=== PATIENT | male | born 1970 | race Caucasian/White ===

== ENCOUNTER 2016-11-24 09:48 | Inpatient (IN) | payer OTHER ==
[~2016-11-24] VITALS: Ht 165.1 cm; Wt 54.0 kg
--- NOTE | 2016-11-29 23:15 | NUR ---
INTAKE NOTE: PRE-ADMISSION ASSESSMENT: PATIENT IS A 46 YEAR OLD MALE, SEEN IN INTAKE OFFICE, AAOx4, NO SOB AND WITH NO ANXIETY NOTED AT THIS TIME. DISCUSSED WITH PATIENT ADMISSION POLICIESNOF THE UNIT. PATIENT IS COHERENT AND ABLE TO RESPOND TO QUESTIONS APPROPRIATELY. PATIENT IS AMBULATORY WITH STEADY GAIT. VITAL SIGNS TAKEN: T: 97.5; BP: 115/68; HR: 74; RR: 20; O2 SAT: 98%, PAIN LEVEL:"0/10". PATIENT REPORTS THAT HE IS USING THE FOLLOWING SUBSTANCE: 1. ALCOHOL ORAL - "SINCE 1984": "6 PACKS BEER(12 OZ EACH BOTTLE), 1 PINT VODKA, OR 1 PINT LIQUER SINCE 06/2011 LAST USE ON 11/28/16". 2. SUBOXONE PO: " 4 MG PO EVERY DAY SINCE 2007. LAST USE 8 MG ON 11/29/16 IN THE MORNING" . 3.HEROIN SNORTING:"1 GRAM EVERY DAY SINCE 1995. LAST USE 1/4 GRAM ON 11/28/16". 4. COCAINE (NARES):"10 BAGS - 1 GRAM EVERY DAY SINCE 1989. LAST USE 1/2 GRAM ON 11/28/16". 5. PCP SMOKING:" 2-3 CIGARETTES EVERY DAY SINCE 1984. LAST USE 2-3 CIGARRETTES ON 11/19/2016". 6. MARIJUANA SMOKING: "EVERY DAY SINCE 1984. LAST USE ON 11/28/16". 7. TOBACCO SMOKING: " 20 CIGARETTES EVERY DAY SINCE 1984. LAST USE ON 11/29/16 ". PATIENT VERBALIZED INSTRUCTIONS AND TEACHINGS REGARDING UNIT PROTOCOLS SUCH TAKING VITAL SIGNS AND CIWA/COWS ASSESSMENTS Q4H. PATIENT VERBALIZED UNDERSTANDING AND AGREEMENT. WILL COMPLETE ADMISSION ASSESSMENT WHEN PATIENT IS BROUGHT TO UNIT.
[2016-11-29 23:28] VITALS: BP 115/68
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
[2016-11-29] MEDS ORDERED: IBUPROFEN 600 MG TABLET PO PRN (23:45)
[2016-11-29] MEDS ORDERED: BUPRENORPHINE HCL 2 MG TAB.SUBL SL PRN (23:45)
[2016-11-29] MEDS ORDERED: HYDROXYZINE PAMOATE 25 MG CAPSULE PO PRN (23:45)
[2016-11-29] MEDS ORDERED: LOPERAMIDE HCL 2 MG CAPSULE PO PRN ×2 (23:45)
[2016-11-29] MEDS ORDERED: CLONIDINE HCL 0.1 MG TABLET PO PRN (23:45)
[2016-11-29] MEDS ORDERED: MIRALAX 17 GM POWD.PACK PO PRN (23:45)
[2016-11-29] MEDS ORDERED: DICYCLOMINE HCL 20 MG TABLET PO PRN (23:45)
[2016-11-29] MEDS ORDERED: ONDANSETRON 4 MG/2 ML VIAL IM PRN (23:45)
[2016-11-29] MEDS ORDERED: ONDANSETRON ODT 4 MG TAB.RAPDIS SL PRN (23:45)
[2016-11-29] MEDS ORDERED: MAG HYDROX/AL HYDROX/SIMETH 30 ML LIQUID UDC PO PRN (23:45)
[2016-11-29] MEDS ORDERED: LORAZEPAM 1 MG TABLET PO PRN (23:45)
[2016-11-29 23:49] LABS: *AMPHETAMINE, URINE NEGATIVE (NEGATIVE); *BARBITURATE, URINE NEGATIVE (NEGATIVE); *CANNABINOID, URINE POSITIVE (NEGATIVE); *COCCAINE, URINE POSITIVE (NEGATIVE); *OPIATE, URINE POSITIVE (NEGATIVE); *PHENCYCLIDINE SCREEN,URINE NEGATIVE (NEGATIVE)
[2016-11-30] VITALS: BP 109/69
[2016-11-30 01:35] LABS: BASOPHILS # (AUTO) 0.1 K/uL (0.0-8.0); BASOPHILS % (AUTO) 0.2 % (0.0-2.0); EOSINOPHILS # (AUTO) 0.3 K/uL (0.0-0.7); EOSINOPHILS % (AUTO) 0.8 % (0.0-7.0); HEMOGLOBIN 11.4 G/DL (14.0-18.0); LYMPHOCYTES % (AUTO) 80.4 % (20.5-51.5); MEAN CORPUSCULAR HEMOGLOBIN 30.1 UUG (27.0-31.0); MEAN CORPUSCULAR HGB CONC 33 g/dL (32.0-37.0); MEAN CORPUSCULAR VOLUME 92.6 FL (82.0-92.0); MONOCYTES # (AUTO) 3.2 K/UL (0.1-1.30); MONOCYTES % (AUTO) 8.4 % (0.0-11.0); NEUTROPHILS # (AUTO) 3.9 K/UL (1.8-8.9); NEUTROPHILS % (AUTO) 10.2 % (38.5-71.5); PLATELET COUNT (AUTO) 287 K/UL (150-450); RED BLOOD CELL COUNT(AUTO) 3.78 MIL/UL (4.7-6.1)
[2016-11-30 01:38] LABS: ALANINE AMINOTRANSFERASE 15 U/L (16-63); ALKALINE PHOSPHATASE 79 U/L (50-136); ASPARTATE AMINOTRANSFERASE 16 U/L (15-37); BILIRUBIN,TOTAL 0.1 mg/dL (0.2-1.0); CARBON DIOXIDE 32 mmol/L (21-32); CHLORIDE 103 mmol/L (98-107); GLUCOSE 97 mg/dL (74-106); POTASSIUM 3.4 mmol/L (3.5-5.1); TOTAL PROTEIN, SERUM 6.1 g/dL (6.4-8.2); UREA NITROGEN, BLOOD 16 mg/dL (7-18)
[2016-11-30 01:52] LABS: ETHANOL < 3 MG/DL (0-0); WHITE BLOOD COUNT (AUTO) 38.5 K/UL (4.0-11.2)
--- NOTE | 2016-11-30 01:52 | NUR ---
Critical WBC: Jose F from lab called to report critical WBC 38.5. Dr Nelson notified at 01:57 with results with NNO at this time. Pt dx with leukemia in 02/2016 and bone marrow transplant in 04/2016.
[2016-11-30 04:00] VITALS: BP 111/61
[2016-11-30 05:29] LABS: BAND % (MANUAL) 2 % (0-10); EOSINOPHILS % (MANUAL) 1 % (0-8); LYMPHOCYTES % (MANUAL) 80 % (20-40); MONOCYTES % (MANUAL) 3 % (2-10); NEUTROPHILS % (MANUAL) 9 % (42-75)
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
--- NOTE | 2016-11-30 07:20 | NUR ---
Start of Shift Domestic Violence Counselor received report on 46 year old male admitted on 11/29/16 for ETOH, Opiate and Cocaine detoxification. Pt is a full code, regular diet with an allergy to Motrin. PMH positive for Leukemia and a resultant bone marrow transplant in 06/07. ( pt WBC elevated, MD made aware, per note on NOC shift.) PMH also of anxiety, depression, hernia repair, chronic lower back pain and multiple fractures , as result of boxing career. Pt reports no history of seizures. Domestic Violence Counselor encounters pt resting in bed with eyes closed and even and unlabored respirations. Rise and fall of chest, noted. Bed in low position, wheels locked, with side rails up x2. Call light within in reach. All safety measures in place according to hospital policy.
[2016-11-30 08:01] VITALS: BP 125/83
[2016-11-30] MEDS ORDERED: TUBERCULIN,PURIF.PROT.DERIV. 5 TU/0.1 ML TEST ID ONE (09:00)
[2016-11-30] MEDS: MULTIVITAMINS,THERAPEUTIC TABLET PO SCH (09:38)
[2016-11-30] MEDS ORDERED: POTASSIUM CHLORIDE 20 MEQ TAB.PRT.SR PO ONE (09:45)
[2016-11-30] MEDS ORDERED: LORAZEPAM 1 MG TABLET PO PRN ×2 (10:00)
[2016-11-30] MEDS ORDERED: LORAZEPAM 2 MG/1 ML VIAL IM PRN (10:00)
[2016-11-30 12:45] VITALS: BP 128/88
[2016-11-30] MEDS: LORAZEPAM 1 MG TABLET PO SCH ×3 (13:20→20:39)
[2016-11-30] MEDS: BUPRENORPHINE HCL 2 MG TAB.SUBL SL SCH ×3 (13:20→20:38)
[2016-11-30 16:50] VITALS: BP 132/81
--- NOTE | 2016-11-30 18:50 | NUR ---
End of Shift Java Core Developer report on 46 year old male admitted on 11/29/16 for ETOH, Opiate and Cocaine detoxification. Pt is a full code, regular diet with an allergy to Motrin. PMH positive for Leukemia and a resultant bone marrow transplant in 06/07. ( pt WBC elevated, MD made aware, MD stating, this is his baseline.) PMH also of anxiety, depression, hernia repair, chronic lower back pain and multiple fractures , as result of boxing career. Pt reports no history of seizures. Pt started on 5 day Ativan and 5 day Subutex tapers., pt tolerating well. Pt has been calm and cooperative, A/O x4 and able to make his needs known. Describes minor withdrawal symptoms and presents pleasant and polite with staff. Bed in low position, wheels locked, with side rails up x2. Call light within in reach. All safety measures in place according to hospital policy. No further comments, questions or concerns voiced by accepting nurse.
--- NOTE | 2016-11-30 18:50 | NUR ---
START OF SHIFT NOTE: PATIENT ENDORSED BY OUTGOING DAY SHIFT NURSE IN STABLE CONDITION. REPORT RECEIVED. PATIENT IS A 46 YEAR OLD MALE ADMITTED TO [facility] ON 11/29/2016 FOR ALCOHOL, OPIOID, COCAINE, AND CANNABINOIDS DEPENDENCE, CONTINUE 5 DAY ATIVAN and 5 DAY SUBUTEX TAPER. PATIENT REPORTS ALLERGY TO IBUPROFEN (MOTRIN). PATIENT IS ON REGULAR DIET, FULL CODE, FALL AND SEIZURES PRECAUTIONS. PATIENT DENIES SEIZURES HISTORY. UPON ENDORSEMENT PATIENT WAS ASSESSED IN HIS ROOM. PATIENT IS ALERT AND ORIENTED X4. SPEECH IS SOFT AND CLEAR. VSWNL. CIWA 7, COWS 7. PATIENT PRESENTED WITH ANXIETY, AGITATION, DEPRESSION, NERVOUSNESS, TREMORS THAT CAN BE FELT, DIAPHORESIS, NASAL STUFFY/MOIST EYES, BODY ACHES, AND RESTLESSNESS. RESPIRATIONS EVEN AND UNLABORED. LUNGS SOUNDS ARE CLEAR THROUGHOUT, PATIENT DENIES SOB/COUGH AND CHEST PAIN. ABDOMEN IS SOFT, NON-TENDER. BOWEL SOUNDS ARE ACTIVE IN ALL X4 QUADRANTS. LAST BM ON 11/30/2016. PATIENT SKIN IS INTACT, WARM AND DRY. DVT PUMPS CONNECTED TO PATIENT ORDERED. ALL NEEDS MET. SAFETY MEASURES IN THE PLACE: CALL LIGHT WITHIN REACH, BED LOCKED, AND IN THE LOWEST POSITION, PADDED RAILS UPX2. WILL CONTINUE TO MONITOR CLOSELY.
[2016-11-30 20:00] VITALS: BP 118/84
[2016-11-30] MEDS: ACETAMINOPHEN 325 MG TABLET PO PRN (20:39)
--- NOTE | 2016-11-30 20:39 | NUR ---
PRN TYLENOL 650 MG 2 TAB PO ADMINISTRATION Patient c/o low back pain "10/28". Patient was assessed. Patient reports chronic low back pain since 04/2016 from time of bone marrow was done in April,. Patient denies SI/HI. PRN Tylenol PO was discussed, and patient's educated for actions, side effects, and adverse reactions of Tylenol. Patient returned knowledge back by verbalized understanding. PRN Tylenol 650 mg 2 tab PO administrated with full glass of water as ordered. Patient tolerated well. All needs met. Safety measures on place. Call light within reach, bed in lowest position and locked, padded rails up bilaterally rails up bilaterally. Will continue to monitor closely.
--- NOTE | 2016-11-30 21:39 | NUR ---
RE-ASSESSMENT Patient is sleeping. Respirations even and unlabored. RR: 15. PRN Trazodone PO was effective. All needs met. Safety measures on place. Call light within reach, bed in lowest position and locked, padded rails up bilaterally rails up bilaterally. Will continue to monitor closely.
[2016-12-01] VITALS: BP 127/91
[2016-12-01 04:00] VITALS: BP 112/79
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
--- NOTE | 2016-12-01 07:00 | NUR ---
Start of Shift Notes: Received patient in his room. Alert and oriented x 4. Able to make his needs known. Respirations even and unlabored. No SOB noted. Skin warm and dry to touch. Abdomen soft and non-distended. BS (+) in all 4 quadrants. No complains of N/V/D or constipation noted. Voids independently. Ambulatory ad mercedes with steady gait. Patient os a 46 year male admitted for opiate and ETOH dependence who was placed on a 5-day Subutex and 5-day Ativan taper as ordered. No adverse reactions noted. Has past medical hx of anxiety, depression, hernia, lewukemia, one marrow transplant and multiple fractures. Allergic to ibuprofen. FULL CODE. Regular diet. On fall and seizure precautions. Educated patient on his current plan of care for the day and his medication regimen. Encouraged oral fluid intake and encouraged group participation to learn new skills to prevent relapse. Will continue to monitor closely.
[2016-12-01 07:02] LABS: BASOPHILS # (AUTO) 0.1 K/uL (0.0-8.0); BASOPHILS % (AUTO) 0.1 % (0.0-2.0); EOSINOPHILS # (AUTO) 0.2 K/uL (0.0-0.7); EOSINOPHILS % (AUTO) 0.4 % (0.0-7.0); HEMOGLOBIN 12.8 G/DL (14.0-18.0); LYMPHOCYTES % (AUTO) 78.4 % (20.5-51.5); MEAN CORPUSCULAR HEMOGLOBIN 30.8 UUG (27.0-31.0); MEAN CORPUSCULAR HGB CONC 33 g/dL (32.0-37.0); MEAN CORPUSCULAR VOLUME 93.7 FL (82.0-92.0); MONOCYTES # (AUTO) 6.2 K/UL (0.1-1.30); MONOCYTES % (AUTO) 11.5 % (0.0-11.0); NEUTROPHILS # (AUTO) 5.2 K/UL (1.8-8.9); NEUTROPHILS % (AUTO) 9.6 % (38.5-71.5); PLATELET COUNT (AUTO) 298 K/UL (150-450); RED BLOOD CELL COUNT(AUTO) 4.14 MIL/UL (4.7-6.1)
[2016-12-01 07:12] LABS: WHITE BLOOD COUNT (AUTO) 53.7 K/UL (4.0-11.2)
[2016-12-01 07:13] LABS: HEMATOCRIT 38.8 % (40-50)
[2016-12-01 07:16] LABS: CREATININE 0.9 mg/dL (0.6-1.3); MAGNESIUM 1.8 mg/dL (1.8-2.4); PHOSPHOROUS 2.3 mg/dL (2.5-4.9); POTASSIUM 4.3 mmol/L (3.5-5.1); URIC ACID 3.7 mg/dL (3.5-7.2)
--- NOTE | 2016-12-01 07:22 | NUR ---
Critical WBC: Critical WBC of 53.7 reported by Herb from lab. made aware with NNO.
[2016-12-01 08:00] VITALS: BP 121/83
[2016-12-01 08:07] LABS: HEPATITIS B SURFACE AG Negative (Negative)
[2016-12-01] MEDS ORDERED: MULTIVITAMINS,THERAPEUTIC TABLET PO SCH (09:00)
[2016-12-01] MEDS: MULTIVITAMINS,THERAPEUTIC TABLET PO SCH (09:08)
[2016-12-01] MEDS: LORAZEPAM 1 MG TABLET PO SCH ×3 (09:08→20:25)
[2016-12-01] MEDS: FOLIC ACID 1 MG TABLET PO SCH (09:09)
[2016-12-01] MEDS: BUPRENORPHINE HCL 2 MG TAB.SUBL SL SCH ×3 (09:09→20:28)
[2016-12-01] MEDS: THIAMINE HCL 100 MG TABLET PO SCH (09:09)
[2016-12-01] MEDS: ENOXAPARIN SODIUM 40 MG/0.4 ML DISP.SYRIN SQ SCH (09:12)
[2016-12-01] MEDS: METHOCARBAMOL 750 MG TABLET PO PRN ×2 (09:19→20:30)
--- NOTE | 2016-12-01 09:19 | NUR ---
Robaxin 750 mg PO given: Patient noted with complain of 5/10 myalgia due to his withdrawal symptoms. Non-pharmacological interventions were provided but ineffective. Medicated patient with Robaxin 750 mg PO as ordered. Will monitor for effectiveness.
[2016-12-01 10:16] LABS: EOSINOPHILS % (MANUAL) 1 % (0-8); LYMPHOCYTES % (MANUAL) 72 % (20-40); NEUTROPHILS % (MANUAL) 10 % (42-75)
[2016-12-01 10:17] LABS: MONOCYTES % (MANUAL) 10 % (2-10)
--- NOTE | 2016-12-01 10:19 | NUR ---
Re-assessment: Per patient, PRN Robaxin was effective in reducing pain. PL 2.
[2016-12-01 10:20] LABS: REACTIVE LYMPHOCYTES 7 % (0-0)
[2016-12-01 12:00] VITALS: BP 126/78
[2016-12-01] MEDS ORDERED: NEUTRA PHOS PACKET PO ONE (15:45)
[2016-12-01 16:00] VITALS: BP 119/83
--- NOTE | 2016-12-01 18:59 | NUR ---
End of Shift Notes: Patient continues to be on 5-day Subutex and 5-day Ativan taper as ordered. No adverse reactions noted. Patient is tolerating both taper well. VS monitored closely. No significant abnormalities noted. Patients withdrawal symptoms were closely monitored. Initial COWS 6/CIWA 5, patient presented with chills, hot flashes, muscle aches and pains, mild anxiety and tremors. Medicated patient with Robaxin 750 mg PO as ordered at 0919 with help after 1 hour. Per patient, Ativan and Subutex has been effective in reducing patients withdrawal symptoms. Last COWS 4/CIWA 3. Patient was encouraged to attend group and activities. Labs reviewed by MD. Patient is afebrile throughout the shift. All needs met and attended. Call light in reach. Will continue to monitor.
--- NOTE | 2016-12-01 19:45 | NUR ---
START OF SHIFT Received report from day shift nurse. Pt is lying in bed resting. He is a 46 yo male admitted to [facility] on 11/29 for ETOH and Opiate dependence. He is A&O x4 and ambulatory. Allergies to ibuprofen, full code status, and on a regular diet. He has a PMH of leukemia, bone [place] transplant, chronic low back pain, multiple fractures, hernia, anxiety, and depression. On admission he admitted to using 6 12oz beers and 1 pint of vodka per day, heroin 1 gram per day, Suboxone 4mg per day, cocaine 1 gram per day, PCP "2-3 cigarettes" per day, and marijuana. Pt started a 5 day Ativan and 5 day Subutex taper on 11/30. He reports hot flashes, anxiety, and low back pain. Pt is noted with moist skin and dilated pupils. Tapers due tonight. Fall and seizure precautions in place. Bed is down with call light in reach.
[2016-12-01 20:00] VITALS: BP 106/79
[2016-12-01] MEDS: GABAPENTIN 300 MG CAPSULE PO SCH (20:26)
[2016-12-01] MEDS: CLONIDINE HCL 0.1 MG TABLET PO SCH (20:26)
--- NOTE | 2016-12-01 20:30 | NUR ---
PRN Robaxin administration Pt c/o low back ache 09/28. PRN Robaxin administered.
[2016-12-01] MEDS ORDERED: MAGNESIUM OXIDE 400 MG TABLET PO ONE (21:00)
--- NOTE | 2016-12-01 21:30 | NUR ---
PRN Robaxin reassessment PRN Robaxin effective. Pt reports low back ache is resolved.
--- NOTE | 2016-12-01 21:55 | NUR ---
Mag-Ox 400mg administered per MD orders.
[2016-12-02] VITALS: BP 106/81
--- NOTE | 2016-12-02 | NUR ---
0000 COWS and CIWA deferred COWS and CIWA ordered Q4HWA. Pt is lying in bed resting with eyes closed. Vital signs obtained. Safety measures in place.
--- NOTE | 2016-12-02 04:00 | NUR ---
0400 Vitals refused/COWS and CIWA deferred Pt refused to be woken for 0400 vitals. He is lying in bed resting with eyes closed. Respirations even and unlabored. COWS and CIWA ordered Q4HWA. Safety measures in place.
--- NOTE | 2016-12-02 07:13 | NUR ---
END OF SHIFT Report provided to day shift nurse. Pt is lying in bed resting. He is a 46 yo [facility]H and Opiate dependence. He is A&O and ambulatory. Allergic to ibuprofen, full code status, and on a regular diet. Pt has a PMH of leukemia, bone [place] transplant, chronic low back pain, multiple fractures, hernia, anxiety, and depression. On admission he admitted to using 6 12oz beers and 1 pint of vodka per day, heroin 1 gram per day, Suboxone 4mg per day, cocaine 1 gram per day, PCP "2-3 cigarettes" per day, and marijuana. Pt started a 5 day Ativan and 5 day Subutex taper on 11/30. Tapers are working well to manage withdrawal symptoms. PRN Robaxin and one time Mag Ox administered. Last COWS 4 and CIWA 3 after medication administration. WBC's elevated. aware. Labs ordered for tomorrow morning. He drank 1150mL and slept for 7 hours. Fall and seizure precautions in place. Bed is down with call light in reach.
--- NOTE | 2016-12-02 07:30 | NUR ---
Start of shift note; Received report from night nurse. Patient is a 46 year male admitted on 11/29/16 for ETOH/Opiate withdrawals. Patient was placed on a 5 day Ativan and 5 day Subutex tapers, no adverse reactions noted. Patient reported history of anxiety, depression, hernia, Leukemia, chronic back pain. Patient reported to be allergic to Motrin, on full code status. Patient is on fall and seizure precautions. Bed in lowest position, call light within reach. Will continue to monitor patient.
[2016-12-02 08:00] VITALS: BP 126/94
[2016-12-02] MEDS: GABAPENTIN 300 MG CAPSULE PO SCH ×2 (08:53→20:55)
[2016-12-02] MEDS: LORAZEPAM 1 MG TABLET PO SCH ×4 (08:53→20:54)
[2016-12-02] MEDS: MULTIVITAMINS,THERAPEUTIC TABLET PO SCH (08:53)
[2016-12-02] MEDS: FOLIC ACID 1 MG TABLET PO SCH (08:53)
[2016-12-02] MEDS: THIAMINE HCL 100 MG TABLET PO SCH (08:53)
[2016-12-02] MEDS: CLONIDINE HCL 0.1 MG TABLET PO SCH ×2 (08:53→20:54)
[2016-12-02] MEDS: ENOXAPARIN SODIUM 40 MG/0.4 ML DISP.SYRIN SQ SCH (08:56)
[2016-12-02] MEDS ORDERED: BUPRENORPHINE HCL 2 MG TAB.SUBL SL SCH (09:00)
--- NOTE | 2016-12-02 11:00 | NUR ---
Therapist prompted client about group times. Client stated he would attend all groups today.
[2016-12-02 12:00] VITALS: BP 117/82
[2016-12-02] MEDS: BUPRENORPHINE HCL 2 MG TAB.SUBL SL SCH ×2 (14:23→20:55)
[2016-12-02 16:00] VITALS: BP 119/78
--- NOTE | 2016-12-02 18:28 | NUR ---
End of shift note; Patient is AOX4. Patient is a 46 year male admitted on 11/29/16 for ETOH/Opiate withdrawals. Patient was placed on a 5 day Ativan and 5 day Subutex tapers, no adverse reactions noted. Patient reported history of anxiety, depression, hernia, Leukemia, chronic back pain. Patient reported to be allergic to Motrin, on full code status. Patient is on fall and seizure precautions. patient remained complaint with treatment plan and medication regime. All safety measures secured. Met all needs.
--- NOTE | 2016-12-02 19:45 | NUR ---
START OF SHIFT Received report from day shift nurse. Pt is lying in bed resting. He is a 46 yo male admitted to [facility] on 11/29 for ETOH and Opiate dependence. He is A&O x4 and ambulatory. Allergic to ibuprofen, full code status, and on a regular diet. He has a PMH of leukemia, bone marrow transplant, chronic low back pain, multiple fractures, hernia, anxiety, and depression. Upon admission he reported using 6 12oz beers and 1 pint of vodka per day, heroin 1 gram per day, Suboxone 4mg per day, cocaine 1 gram per day, PCP "2-3 cigarettes" per day, and marijuana. Pt started a 5 day Ativan and 5 day Subutex taper on 11/30. He reports chills, low back pain, inability to relax, and anxiety. Tapers due tonight. Safety measures in place.
[2016-12-02 20:00] VITALS: BP 122/76
[2016-12-02] MEDS: METHOCARBAMOL 750 MG TABLET PO PRN (20:54)
--- NOTE | 2016-12-02 20:55 | NUR ---
PRN Robaxin administration Pt c/o low back pain 11/28. PRN Robaxin administered.
--- NOTE | 2016-12-02 21:55 | NUR ---
PRN Robaxin reassessment PRN Robaxin effective at reducing pt's pain level to 4/10.
[2016-12-02] MEDS: ACETAMINOPHEN 325 MG TABLET PO PRN (23:45)
[2016-12-02] MEDS: diphenhydrAMINE 50 MG CAPSULE PO PRN (23:45)
--- NOTE | 2016-12-02 23:46 | NUR ---
PRN Tylenol and Benadryl Pt c/o back pain /10 and inability to sleep. PRN Tylenol and Benadryl administered. Warm pack provided for low back.
[2016-12-03] VITALS: BP 113/70
[2016-12-03 06:59] LABS: BASOPHILS % (AUTO) 0.1 % (0.0-2.0); EOSINOPHILS # (AUTO) 0.2 K/uL (0.0-0.7); EOSINOPHILS % (AUTO) 0.6 % (0.0-7.0); HEMATOCRIT 37.7 % (40-50); HEMOGLOBIN 12.4 G/DL (14.0-18.0); LYMPHOCYTES # (AUTO) 32.4 K/UL (0.8-4.8); MEAN CORPUSCULAR HEMOGLOBIN 30.7 UUG (27.0-31.0); MEAN CORPUSCULAR HGB CONC 33 g/dL (32.0-37.0); MONOCYTES # (AUTO) 4.1 K/UL (0.1-1.30); NEUTROPHILS # (AUTO) 4.2 K/UL (1.8-8.9); NEUTROPHILS % (AUTO) 10.3 % (38.5-71.5); PLATELET COUNT (AUTO) 267 K/UL (150-450); RED BLOOD CELL COUNT(AUTO) 4.05 MIL/UL (4.7-6.1)
--- NOTE | 2016-12-03 07:07 | NUR ---
END OF SHIFT Report provided to day shift nurse. Pt is lying in bed resting. He is a 46 yo male admitted to [facility] on 11/29 for ETOH and Opiate dependence. He is A&O x4 and ambulatory. Allergic to ibuprofen, full code status, and on a regular diet. He has a PMH of leukemia, bone marrow transplant, chronic low back pain, multiple fractures, hernia, anxiety, and depression. Upon admission he reported using 6 12oz beers and 1 pint of vodka per day, heroin 1 gram per day, Suboxone 4mg per day, cocaine 1 gram per day, PCP "2-3 cigarettes" per day, and marijuana. Pt started a 5 day Ativan and 5 day Subutex taper on 11/30. PRN Robaxin, Tylenol, and Benadryl administered for back pain. Last COWS 6 and CIWA 3. He drank 480mL and slept for 6 hours. Tapers due tonight. Safety measures in place.
[2016-12-03 07:08] LABS: WHITE BLOOD COUNT (AUTO) 40.9 K/UL (4.0-11.2)
[2016-12-03 07:15] LABS: PHOSPHOROUS 3.6 mg/dL (2.5-4.9); POTASSIUM 4.2 mmol/L (3.5-5.1)
--- NOTE | 2016-12-03 07:23 | NUR ---
Start of shift note; Received report from night nurse. Patient is a 46 year male admitted on 11/29/16 for ETOH/Opiate withdrawals. Patient was placed on a 5 day Ativan and 5 day Subutex tapers, no adverse reactions noted. Patient reported history of anxiety, depression, hernia, Leukemia, chronic back pain. Patient reported to be allergic to Motrin, on full code status. Patient's last COWS score is 6 and last CIWA is 4. Patient is on fall and seizure precautions. Bed in lowest position, call light within reach. Will continue to monitor patient.
[2016-12-03 08:00] VITALS: BP 104/68
[2016-12-03 08:34] LABS: EOSINOPHILS % (MANUAL) 1 % (0-8); LYMPHOCYTES % (MANUAL) 82 % (20-40); MONOCYTES % (MANUAL) 6 % (2-10); NEUTROPHILS % (MANUAL) 11 % (42-75)
[2016-12-03] MEDS: GABAPENTIN 300 MG CAPSULE PO SCH ×3 (08:53→20:51)
[2016-12-03] MEDS: BUPRENORPHINE HCL 2 MG TAB.SUBL SL SCH ×3 (08:53→20:52)
[2016-12-03] MEDS: MULTIVITAMINS,THERAPEUTIC TABLET PO SCH (08:53)
[2016-12-03] MEDS: THIAMINE HCL 100 MG TABLET PO SCH (08:54)
[2016-12-03] MEDS: CLONIDINE HCL 0.1 MG TABLET PO SCH ×2 (08:54→20:51)
[2016-12-03] MEDS: FOLIC ACID 1 MG TABLET PO SCH (08:54)
[2016-12-03] MEDS: LORAZEPAM 1 MG TABLET PO SCH ×3 (08:54→20:50)
[2016-12-03] MEDS: ENOXAPARIN SODIUM 40 MG/0.4 ML DISP.SYRIN SQ SCH (08:55)
[2016-12-03 12:00] VITALS: BP 113/76
[2016-12-03 16:00] VITALS: BP 117/82
--- NOTE | 2016-12-03 18:07 | NUR ---
End of shift note; Patient is AOX4. Patient is a 46 year male admitted on 11/29/16 for ETOH/Opiate withdrawals. Patient was placed on a 5 day Ativan and 5 day Subutex tapers, no adverse reactions noted. Patient reported history of anxiety, depression, hernia, Leukemia, chronic back pain. Patient reported to be allergic to Motrin, on full code status. Patient is on fall and seizure precaution. Bed in lowest position, call light within reach. Met all needs.
--- NOTE | 2016-12-03 19:20 | NUR ---
START OF SHIFT Received report from day shift nurse. Pt is lying in bed resting. He is a 46 yo male admitted to [facility] on 11/29 for ETOH and Opiate dependence. He is A&O x4 and ambulatory. Allergic to ibuprofen, full code status, and on a regular diet. He has a PMH of leukemia, bone marrow transplant, chronic low back pain, multiple fractures, hernia, anxiety, and depression. Upon admission he reported using 6 12oz beers and 1 pint of vodka per day, heroin 1 gram per day, Suboxone 4mg per day, cocaine 1 gram per day, PCP "2-3 cigarettes" per day, and marijuana. 5 day Ativan and 5 day Subutex tapers were started on 11/30. He reports feeling anxious. Tapers are working well to manage withdrawal symptoms. Safety measures in place.
[2016-12-03 20:00] VITALS: BP 118/86
[2016-12-03] MEDS: ACETAMINOPHEN 325 MG TABLET PO PRN (20:52)
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
--- NOTE | 2016-12-03 21:53 | NUR ---
PRN Tylenol reassessment PRN Tylenol effective. Pt reports right side rib pain is reduced to 2/10.
[2016-12-04] VITALS: BP 113/76
--- NOTE | 2016-12-04 | NUR ---
0000 COWS and CIWA deferred COWS and CIWA ordered Q4HWA. Pt is lying in bed resting with eyes closed. Vital signs obtained. Safety measures in place.
--- NOTE | 2016-12-04 | NUR ---
LUISA ADORNO RE-ASSESSMENT/COWS/CIWA/VS PATIENT ASLEEP AT THIS TIME. COWS AND CIWA UNABLE TO ASSESS. RESPIRATION EVEN AND UNLABORED. RR 15. SAFETY MEASURES IN PLACE. CALL LIGHT IN REACH. WILL CONTINUE TO MONITOR Addendum: 12/05/16 at 0618 by TRUE RICH LVN ERROR CHARTING
[2016-12-04] MEDS: diphenhydrAMINE 50 MG CAPSULE PO PRN ×2 (02:05→20:34)
--- NOTE | 2016-12-04 02:06 | NUR ---
PRN Benadryl administration Pt reports that he woke up due to having a "drug dream" and is unable to fall back to sleep. Encouraged relaxation. PRN Benadryl administered.
--- NOTE | 2016-12-04 03:06 | NUR ---
PRN Benadryl reassessment PRN Benadryl effective. Pt is lying in bed resting with eyes closed. Respirations even and unlabored. Safety measures in place.
--- NOTE | 2016-12-04 07:22 | NUR ---
END OF SHIFT Report provided to day shift nurse. Pt is lying in bed resting. He is a 46 yo male admitted to [facility] on 11/29 for ETOH and Opiate dependence. He is A&O x4 and ambulatory. Allergic to ibuprofen, full code status, and on a regular diet. He has a PMH of leukemia, bone marrow transplant, chronic low back pain, multiple fractures, hernia, anxiety, and depression. Upon admission he reported using 6 12oz beers and 1 pint of vodka per day, heroin 1 gram per day, Suboxone 4mg per day, cocaine 1 gram per day, PCP "2-3 cigarettes" per day, and marijuana. 5 day Ativan and 5 day Subutex tapers were started on 11/30. PRN Tylenol and Benadryl administered. Last COWS 5 and CIWA 3. He drank 1594mL and slept for 6 hours. Safety measures in place.
--- NOTE | 2016-12-04 07:37 | NUR ---
Start of shift note; Received report from night nurse. Patient is a 46 year male admitted on 11/29/16 for ETOH/Opiate withdrawals. Patient was placed on a 5 day Ativan and 5 day Subutex tapers, no adverse reactions noted. Patient reported history of anxiety, depression, hernia, Leukemia, chronic back pain. Patient reported to be allergic to Motrin, on full code status. Patient slept for 6 hours. Patient is on fall and seizure precautions. Bed in lowest position, call light within reach. Will continue to monitor patient.
[2016-12-04 08:00] VITALS: BP 103/70
[2016-12-04] MEDS: GABAPENTIN 300 MG CAPSULE PO SCH ×3 (08:23→20:34)
[2016-12-04] MEDS: THIAMINE HCL 100 MG TABLET PO SCH (08:23)
[2016-12-04] MEDS: MULTIVITAMINS,THERAPEUTIC TABLET PO SCH (08:23)
[2016-12-04] MEDS: BUPRENORPHINE HCL 2 MG TAB.SUBL SL SCH ×2 (08:23→20:34)
[2016-12-04] MEDS: LORAZEPAM 1 MG TABLET PO SCH ×2 (08:24→20:34)
[2016-12-04] MEDS: ENOXAPARIN SODIUM 40 MG/0.4 ML DISP.SYRIN SQ SCH (08:24)
[2016-12-04] MEDS: CLONIDINE HCL 0.1 MG TABLET PO SCH ×2 (08:24→20:34)
[2016-12-04] MEDS: FOLIC ACID 1 MG TABLET PO SCH (08:24)
--- NOTE | 2016-12-04 09:05 | NUR ---
PRN medication; Patient appears anxious with HR of 102, patient pacing back and forth in the room. PRN Vistaril 25 mg PO given for anxiety. Will continue to monitor patient.
--- NOTE | 2016-12-04 10:05 | NUR ---
Re-assessment; Patient appears calm and comfortable at this time. PRN medication is effective.
[2016-12-04 12:00] VITALS: BP 123/81
[2016-12-04] MEDS ORDERED: HYDROXYZINE PAMOATE 25 MG CAPSULE PO PRN (13:45)
[2016-12-04 16:00] VITALS: BP 114/76
--- NOTE | 2016-12-04 18:08 | NUR ---
End of shift note; Patient is AOX4. Patient is a 46 year male admitted on 11/29/16 for ETOH/Opiate withdrawals. Patient was placed on a 5 day Ativan and 5 day Subutex tapers, no adverse reactions noted. Patient reported history of anxiety, depression, hernia, Leukemia, chronic back pain. Patient reported to be allergic to Motrin, on full code status. Patient is on fall and seizure precautions. Patient remained compliant with treatment plan. Medications were effective in reducing withdrawal symptoms. Bed in lowest position, call light within reach.
[2016-12-04 20:00] VITALS: BP 123/80
--- NOTE | 2016-12-04 20:00 | NUR ---
START OF SHIFT NOTE PATIENT ALERT AND ORIENTED X 4. RESPIRATION EVEN AND UNLABORED PATIENT REPORTS ANXIETY, SWEATING, STUFFY NOSE, NO ABDOMINAL CRAMPING, RIGHT RIB AREA PAIN /10. PATIENT STATES HE ATTENDED GROUPS , APPETITE IS GOOD AND DRINKING FLUIDS WELL. RECEIVED REPORT FROM DAY SHIFT NURSE. PATIENT IS A 46 YEAR OLD MALE ADMITTED FOR ALCOHOL, OPIOID, COCAINE AND MARIJUANA DEPENDENCE. PATIENT IS ON 5TH DAY OF HIS 5 DAY ATIVAN AND 5 DAY SUBUTEX TAPER. PATIENT IS ALLERGIC TO MOTRIN. UPON ADMISSION, PATIENTS DRUG OF CHOICE ARE ALCOHOL , HEROIN, COCAINE, PCP, MARIJUANA AND SUBOXONE. PATIENT REPORTS NO SEIZURE HISTORY. SKIN INTACT. DR. MARTINEZ IS AWARE OF PATIENTS LAB Addendum: 12/05/16 at 0007 by TRUE RICH LVN RESULTS . PATIENT WAS GIVEN PRN VISTARIL. LAST COWS 2 AND CIWA 2. ON FALL/SEIZURE PRECAUTION. SAFETY MEASURES IN PLACE. CALL LIGHT IN REACH. WILL CONTINUE TO MONITOR.
--- NOTE | 2016-12-04 20:34 | NUR ---
PRN BENADRYL ADMINISTRATION PATIENT REQUESTS FOR SLEEP AID. PRN BENADRYL GIVEN. WILL MONITOR FOR EFFECTIVENESS.
--- NOTE | 2016-12-05 | NUR ---
LUISA ADORNO RE-ASSESSMENT/COWS/CIWA/VS PATIENT ASLEEP AT THIS TIME. COWS AND CIWA UNABLE TO ASSESS. RESPIRATION EVEN AND UNLABORED. RR 15. SAFETY MEASURES IN PLACE. CALL LIGHT IN REACH. WILL CONTINUE TO MONITOR
--- NOTE | 2016-12-05 04:00 | NUR ---
COWS/CIWA/VS PATIENT ASLEEP AT THIS TIME. COWS AND CIWA UNABLE TO ASSESS. RESPIRATION EVEN AND UNLABORED. RR 15. SAFETY MEASURES IN PLACE. CALL LIGHT IN REACH. WILL CONTINUE TO MONITOR
--- NOTE | 2016-12-05 07:26 | NUR ---
END OF SHIFT NOTE PATIENT REMAIN ALERT AND ORIENTED X 4. RESPIRATION EVEN AND UNLABORED PATIENT REPORTED ANXIETY, SWEATING , STUFFY NOSE, NO ABDOMINAL CRAMPING, RIGHT RIB AREA PAIN 7/10. PATIENT STATES HE ATTENDED GROUPS , APPETITE IS GOOD AND DRINKING FLUIDS WELL. PATIENT IS ON 5 DAY ATIVAN AND 5 DAY SUBUTEX TAPER, TOLERATED WELL . NO ADVERSE REACTION. SKIN INTACT. DR. MARTINEZ IS AWARE OF PATIENTS LAB RESULTS . PATIENT WAS GIVEN PRN BENADRYL. LAST COWS ON FALL/SEIZURE PRECAUTION. SAFETY MEASURES IN PLACE. CALL LIGHT IN REACH. WILL CONTINUE TO MONITOR. SLEPT HOURS. FLUID INTAKE ML. VOIDED X . BM. LAST COWS 5 AND CIWA 3.
[2016-12-05 08:00] VITALS: BP 109/73
[2016-12-05] MEDS ORDERED: BUPRENORPHINE HCL 2 MG TAB.SUBL SL SCH (09:00)
[2016-12-05] MEDS: GABAPENTIN 300 MG CAPSULE PO SCH ×3 (09:02→20:47)
[2016-12-05] MEDS: ENOXAPARIN SODIUM 40 MG/0.4 ML DISP.SYRIN SQ SCH (09:02)
[2016-12-05] MEDS: CLONIDINE HCL 0.1 MG TABLET PO SCH ×2 (09:02→20:48)
[2016-12-05] MEDS: METHOCARBAMOL 750 MG TABLET PO PRN (09:02)
[2016-12-05] MEDS: MULTIVITAMINS,THERAPEUTIC TABLET PO SCH (09:02)
[2016-12-05] MEDS: FOLIC ACID 1 MG TABLET PO SCH (09:02)
--- NOTE | 2016-12-05 09:02 | NUR ---
Vistaril 50 mg PO/Robaxin 750 mg PO given: Patient noted with HR 101. Noted pacing, hyperverbal. Complains of severe anxiety and noted to be fidgeting. Also noted with complain of generalized aching /10. Unable to be relieved with non-pharmacological intervention. Medicated patient with Vistaril 50 mg PO and Robaxin 750 mg PO as ordered. Will monitor for effectiveness.
[2016-12-05] MEDS: THIAMINE HCL 100 MG TABLET PO SCH (09:03)
--- NOTE | 2016-12-05 10:02 | NUR ---
Re-assessment: Per patient, PRN Vistaril 50 mg PO and Robaxin 750 mg PO were effective in reducing patient's anxiety and myalgia. PL 2.
[2016-12-05 12:00] VITALS: BP 110/77
[2016-12-05 14:17] LABS: *AMPHETAMINE, URINE NEGATIVE (NEGATIVE); *BARBITURATE, URINE NEGATIVE (NEGATIVE); *CANNABINOID, URINE NEGATIVE (NEGATIVE); *COCCAINE, URINE NEGATIVE (NEGATIVE); *OPIATE, URINE NEGATIVE (NEGATIVE); *PHENCYCLIDINE SCREEN,URINE NEGATIVE (NEGATIVE)
[2016-12-05 16:00] VITALS: BP 131/74
--- NOTE | 2016-12-05 18:56 | NUR ---
End of Shift Notes: Patient completed his 5-day Ativan and 5-day Subutex taper as ordered. No adverse reactions noted. Patient tolerated taper well. VS monitored closely q 4 hours. No significant abnormalities noted. Withdrawal symptoms were closely monitored. Initial COWS 10/CIWA 8, due to muscle aches and pains and severe anxiety and agitation. Medicated patient with Robaxin 750 mg PO and Vistaril 50 mg PO for anxiety and myalgia with help after 1 hour. Last COWS 3/CIWA 2. Per patient, Subutex and Ativan has helped him with his withdrawal symptoms. Patient will be discharging tomorrow. UDS in and resulted. Actively participates in group and therapy sessions. On fall and seizure precautions. All needs met and attended. Will continue to monitor closely.
[2016-12-05 20:00] VITALS: BP 117/84
--- NOTE | 2016-12-05 20:00 | NUR ---
START F SHIFT NOTE RECEIVED REPORT FROM DAY SHIFT NURSE. PATIENT IS A 46 YEAR OLD MALE ADMITTED FOR ALCOHOL, OPIOID, COCAINE AND CANNABIS DEPENDENCE. PATIENT COMPLETED 5 DAY ATIVAN AND 5 DAY SUBUTEX TAPER, TOLERATED WELL. NO ADVERSE REACTION. PATIENT IS MEDICALLY CLEARED TO BE DISCHARGED TOMORROW. PATIENT WAS GIVEN PRN VISTARIL AND ROBAXIN. LAST COWS 3 AND CIWA 2. ON FALL/SEIZURE PRECAUTION. SAFETY MEASURES IN PLACE. CALL LIGHT IN REACH. WILL CONTINUE TO MONITOR
[2016-12-05] MEDS: diphenhydrAMINE 50 MG CAPSULE PO PRN (20:47)
--- NOTE | 2016-12-05 20:47 | NUR ---
PRN BENADRYL ADMINISTRATION PATIENT REQUESTS FOR SLEEP AID. PRN BENADRYL GIVEN. WILL MONITOR FOR EFFECTIVENESS
[2016-12-05] MEDS ORDERED: DIPH50CA37 PO (21:39)
[2016-12-05] MEDS ORDERED: METH-406 PO (21:39)
[2016-12-05] MEDS ORDERED: HYDR-3895 PO (21:39)
[2016-12-05] MEDS ORDERED: GABA-534 PO (21:39)
[2016-12-05] MEDS ORDERED: DICY20TA28 PO (21:39)
[2016-12-05] MEDS ORDERED: ACET325T53 PO (21:40)
--- NOTE | 2016-12-05 22:00 | NUR ---
LUISA ADORNO RE-ASSESSMENT PATIENT ASLEEP AT THIS TIME. RESPIRATION EVEN AND UNLABORED. RR 14. SAFETY MEASURES IN PLACE. CALL LIGHT IN REACH. WILL CONTINUE TO MONITOR.
--- NOTE | 2016-12-06 | NUR ---
PRN COWS/CIWA/VS PATIENT ASLEEP. RESPIRATION EVEN AND UNLABORED.RR 14. NO S/S OF DISTRESS. SAFETY MEASURES IN PLACE. CALL LIGHT IN REACH. WILL CONTINUE TO MONITOR.
--- NOTE | 2016-12-06 04:00 | NUR ---
COWS/CIWA/VS PATIENT ASLEEP. RESPIRATION EVEN AND UNLABORED. RR 15. NO S/S OF DISTRESS. WILL CONTINUE TO MONITOR
--- NOTE | 2016-12-06 07:08 | NUR ---
END OF SHIFT NOTE PATIENT IS A 46 YEAR OLD MALE ADMITTED FOR ALCOHOL,OPIOID, COCAINE AND CANNABIS DEPENDENCE. PATIENT COMPLETED 5 DAY ATIVAN AND 5 DAY SUBUTEX TAPER, TOLERATED WELL. NO ADVERSE REACTION. PATIENT IS MEDICALLY CLEARED TO BE DISCHARGED TODAY. PATIENT WAS GIVEN PRN BENADRYL FOR SLEEP. PATIENT COMPLIANT WITH MEDICATION AND TREATMENT PLAN. ON FALL/SEIZURE PRECAUTION. SAFETY MEASURES IN PLACE. CALL LIGHT IN REACH. WILL CONTINUE TO MONITOR. SLEPT HOURS. FLUID INTAKE 950 ML. VOIDED X 2. BM X 1. LAST COWS 2 AND CIWA 1.
--- NOTE | 2016-12-06 07:16 | NUR ---
Start of Shift Notes: Received patient in his room. Alert and oriented x 4. Able to make his needs known. Respirations even and unlabored. No SOB noted. Skin warm and dry to touch. Abdomen soft and non-distended. BS (+) in all 4 quadrants. No complains of N/V/D or constipation noted. Voids independently. Ambulatory ad mercedes with steady gait. Patient os a 46 year male admitted for opiate and ETOH dependence who was placed on a 5-day Subutex and 5-day Ativan taper as ordered. No adverse reactions noted. Has past medical hx of anxiety, depression, hernia, lewukemia, one marrow transplant and multiple fractures. Allergic to ibuprofen. FULL CODE. Regular diet. On fall and seizure precautions. Educated patient on his current plan of care and the discharge process. Will continue to monitor closely.
[2016-12-06 08:00] VITALS: BP 102/61
[2016-12-06] MEDS: THIAMINE HCL 100 MG TABLET PO SCH (08:38)
[2016-12-06] MEDS: FOLIC ACID 1 MG TABLET PO SCH (08:38)
[2016-12-06] MEDS: GABAPENTIN 300 MG CAPSULE PO SCH (08:38)
[2016-12-06] MEDS: MULTIVITAMINS,THERAPEUTIC TABLET PO SCH (08:38)
[2016-12-06] MEDS: ENOXAPARIN SODIUM 40 MG/0.4 ML DISP.SYRIN SQ SCH (08:38)
[2016-12-06 08:39] VITALS: BP 125/75
[2016-12-06] MEDS: CLONIDINE HCL 0.1 MG TABLET PO SCH (08:39)
--- NOTE | 2016-12-06 09:33 | NUR ---
Discharged: Patient left the unit at this time in stable condition. Patient's COWS 1/CIWA 1 due to mild anxiety. Educated patient on his discharge instructions. Patient verbalized good understanding. All discharge paperwork were provided to the patient and placed inside the duffel bag. No home meds were returned to the patient. Patient verbalized good understanding of all teachings. VS stable. Escorted off the unit and picked up by [employer] to be transported to [facility].
== END 2016-12-06 09:25 | disposition other institution (70) | DRG 895 ==
LOC: SRC 11-29 22:36
PROVIDERS: ADMIT Internal Medicine; ATTEND Internal Medicine
PROC: HZ2ZZZZ Detoxification Services for Substance Abuse Treatment (ICD-10-PCS; principal; 2016-11-29)
PROC: HZ41ZZZ Group Counseling for Substance Abuse Treatment, Behavioral (ICD-10-PCS; 2016-11-30)
PROC: HZ31ZZZ Individual Counseling for Substance Abuse Treatment, Behavioral (ICD-10-PCS; 2016-12-02)
DX: F10.230 Alcohol dependence with withdrawal, uncomplicated (principal); C91.10 Chronic lymphocytic leukemia of B-cell type not having achieved remission; Z94.81 Bone marrow transplant status; F14.20 Cocaine dependence, uncomplicated; E83.42 Hypomagnesemia; F11.23 Opioid dependence with withdrawal; F32.9 Major depressive disorder, single episode, unspecified; Y90.9 Presence of alcohol in blood, level not specified; F16.10 Hallucinogen abuse, uncomplicated; Z81.1 Family history of alcohol abuse and dependence; Z81.3 Family history of other psychoactive substance abuse and dependence; Z88.6 Allergy status to analgesic agent; F17.210 Nicotine dependence, cigarettes, uncomplicated; F41.9 Anxiety disorder, unspecified; Z82.49 Family history of ischemic heart disease and other diseases of the circulatory system; G89.29 Other chronic pain; D53.9 Nutritional anemia, unspecified; E87.6 Hypokalemia; F12.90 Cannabis use, unspecified, uncomplicated; E83.39 Other disorders of phosphorus metabolism; M54.5 Low back pain
CPT/HCPCS: 36415; 70030-TC; 80307; 80349; 80353; 80361; 83615; 83735; 84100; 84550; 85025; 86580; 86592; 86705; 86803; 87340; 87806; A4663; G0480; J1650; Q0163